=== PATIENT | female | born 2000 | race Caucasian/White ===

== ENCOUNTER → 2022-01-23 16:12 | Outpatient (REF) | payer BC, SELFPAY | LOC: ANHLAB 16:12 | PROVIDERS: PCP Physician Assistant; Visit Provider Surgery Plastic and Reconstructive Surgery | DX: Q27.9 Congenital malformation of peripheral vascular system, unspecified (principal) | CPT/HCPCS: 88305 ==

== ENCOUNTER 2025-04-28 15:14 | Outpatient (CLI) | payer BC, SELFPAY ==
--- NOTE | ~2025-04-28 | US_ITS ---
EXAM/PROCEDURE: US OB <= 14 weeks fetus - 04/28/2025 15:19 CDT HISTORY: 25 years old Female with Spotting COMPARISON: None available. TECHNIQUE: Multiple transvaginal images were obtained. FINdINGS: There is a single, live, intrauterine gestation with a heart rate of 179 bpm. The crown-rump length is 18 mm, which is equivalent to a 8 week, 2 day gestation. This gives an estimated date of delivery of 12/06/2025. Unremarkable yolk sac is seen. The gestational sac is unremarkable. There is no myometrial abnormality. The ovaries appear unremark able. No significant free fluid is seen. IMPRESSION: Single live embryo with estimated date of delivery of 12/06/2025. Reviewed, dictated and finalized at location A.
== END 2025-04-28 15:15 | disposition home or self-care (01) ==
PROVIDERS: PCP Obstetrics & Gynecology Gynecology; Visit Provider Obstetrics & Gynecology Gynecology
DX: O26.851 Spotting complicating pregnancy, first trimester (principal); Z3A.00 Weeks of gestation of pregnancy not specified
CPT/HCPCS: 76801

== ENCOUNTER 2025-07-15 15:19 | Outpatient (CLI) | payer BC, SELFPAY ==
--- NOTE | ~2025-07-15 | US_ITS ---
EXAMINATION: US OB /maternal detail DATE: 07/15/2025 15:48 INDICATION: anatomic survey. TECHNIQUE: Real-time ultrasound of the pelvis was performed. COMPARISON: Ultrasound 04/28/2025 FINDINGS: There is a single living fetus in breech presentation. The placenta is posterior, 1.5 cm from the cervix. heart rate is 141 beats per minute (bpm). The amniotic fluid volume is subjectively normal. The cervical length is 3.9 cm on transabdominal images, which is normal. The following biometric data were obtained: Biparietal diameter (BPD): 4.4 cm; head circumference (HC): 17.0 cm; abdominal circumference (AC): 14.7 cm; femur length (FL): 3.1 cm. These measurements are concordant. Estimated weight is 315 g +/- 47 g, which correlates with the 69th percentile when 12/06/25 is used as estimated date of delivery. As single measurements, these parameters are each equal to the following estimated gestational ages: BPD: 19 weeks 3 days. HC: 19 weeks 4 days. AC: 20 weeks 0 days. FL: 19 weeks 5 days. estimated gestational age based solely on measurements from this exam is 19 weeks 5 days +/- 1 weeks 3 days. The cerebral ventricles, cerebellum, cisterna magna, nuchal fold, and spine are normal. The heart is normal. The diaphragm, stomach, kidneys, and bladder are normal. There are two umbilical arteries to yield a 3-vessel cord. The cord insertion is normal. IMPRESSION: 1. Single living fetus in breech presentation. 2. Estimated weight is 315 g +/- 47 g, which correlates with the 69th percentile when 12/06/25 is used as estimated date of delivery. This date was set by ultrasound on 04/28/2025. 3. Normal anatomic survey. 4. Low-lying placenta. Reviewed, dictated and finalized at location E. IMPRESSION: 1. Single living fetus in breech presentation. 2. Estimated weight is 315 g +/- 47 g, which correlates with the 69th pe rcentile when 12/06/25 is used as estimated date of delivery. This date was set b y ultrasound on 04/28/2025. 3. Normal anatomic survey. 4. Low-lying placenta.
== END 2025-07-15 15:20 | disposition home or self-care (01) ==
LOC: GOSHIMG 15:19
PROVIDERS: PCP Obstetrics & Gynecology Gynecology; Visit Provider Obstetrics & Gynecology Gynecology
DX: Z36.9 Encounter for antenatal screening, unspecified (principal)
CPT/HCPCS: 76805

== ENCOUNTER 2025-08-18 10:48 | Outpatient (CLI) | payer BC, SELFPAY ==
--- NOTE | ~2025-08-18 | US_ITS ---
EXAMINATION: US OB follow up DATE: 08/18/2025 11:07 INDICATION: Low-lying placenta TECHNIQUE: Real-time ultrasound of the pelvis was performed. The interpreting radiologist was not present for the study. COMPARISON: 07/15/2025 FINDINGS: There is a single living fetus in transverse lie. The placenta is posterior and low-lying with caudal margin extending to at or near the internal cervical os which is suboptimally visualized on the transabdominal imaging. heart rate is 154 beats per minute (bpm). The amniotic fluid volume is subjectively normal with normal deepest vertical pocket measurement of 4.3 cm. The following biometric data were obtained: BPD: 6.0 cm -> 24 weeks 3 days Head circumference: 22.3 cm -> 24 weeks 2 days Abdominal circumference: 20.9 cm -> 25 weeks 3 days Femur length: 4.4 cm -> 24 weeks 4 days These measurements are concordant. Head circumference to abdominal circumference ratio: 1.07 (normal range 1.04-1.22). Estimated weight: 753 g (+/-) 113 g or 1 lbs. 11 oz. (+/-) 4 oz. IMPRESSION: 1. Single living fetus in transverse lie with heart rate of 154 bpm. 2. Posterior low-lying placenta. 3. Estimated weight is 72nd percentile by Hadlock criteria when 12/06/2025 is used as the estimated date of delivery (ANGELIA). Please correlate with clinical information or earlier ultrasounds for most accurate ANGELIA. Reviewed, dictated and finalized at location A. ARMS INSTRUCTOR
== END 2025-08-18 10:49 | disposition home or self-care (01) ==
LOC: GOSHIMG 10:49
PROVIDERS: PCP Obstetrics & Gynecology Gynecology; Visit Provider Obstetrics & Gynecology Gynecology
DX: O44.42 Low lying placenta NOS or without hemorrhage, second trimester (principal); Z3A.00 Weeks of gestation of pregnancy not specified
CPT/HCPCS: 76816

== ENCOUNTER 2025-09-14 15:28 | Outpatient (CLI) | payer BC, SELFPAY ==
--- NOTE | ~2025-09-14 | US_ITS ---
EXAMINATION:Ultrasound uterus OB, Limited: DATE: 09/14/2025 INDICATION: Follow-up of prior finding of low-lying placenta. TECHNIQUE: Limited OB ultrasound examination. COMPARISON: Previous examination dated 08/18/2025. FINDINGS: Single live fetus in cephalic presentation. 28+ weeks of established gestational age. Posterior placenta is noted again with low lying placenta the lower edge of the placenta, 2.3 cm from the internal os of the cervix. Cervix length measures 3.9 cm. Amniotic fluid volume is normal with index of 16.6 cm. IMPRESSION: 1. Single live fetus 28+ weeks of established gestational age in cephalic presentation. 2. Low-lying posterior placenta are noted again. Cervix length is normal. 3. Amniotic fluid index is normal. Reviewed, dictated and finalized at location T. JANITOR IMPRESSION: 1. Single live fetus 28+ weeks of established gestational age in cephalic prese ntation. 2. Low-lying posterior placenta are noted again. Cervix length is normal. 3. Amniotic fluid index is normal.
== END 2025-09-14 15:29 | disposition home or self-care (01) ==
LOC: GOSHIMG 15:28
PROVIDERS: PCP Obstetrics & Gynecology Gynecology; Visit Provider Obstetrics & Gynecology Gynecology
DX: O44.42 Low lying placenta NOS or without hemorrhage, second trimester (principal); Z3A.00 Weeks of gestation of pregnancy not specified
CPT/HCPCS: 76816